=== PATIENT | female | born 1970 | race Caucasian/White ===

== ENCOUNTER → 2018-03-24 10:52 | Outpatient (CLI) | payer BC, SELFPAY ==
[2018-03-24 11:00] LABS: Bacteria Urine None Seen; RBC Urine None Seen (0-5/HPF); WBC Urine None Seen (0-5/HPF)
[2018-03-24 12:18] LABS: Appearance Urine UA CLEAR; Bilirubin Urine UA NEGATIVE (NEGATIVE); Color Urine UA YELLOW; Glucose Urine UA NEGATIVE (Normal); Ketones Urine UA NEGATIVE (NEGATIVE); Leukocyte Esterase Urine UA NEGATIVE (NEGATIVE); Nitrite Urine UA Negative (Negative); Occult Blood Urine UA NEGATIVE (Negative); Protein Urine UA NEGATIVE (Negative); Urobilinogen Urine UA 0.2 E.U./dL (0.2); pH Urine UA 6.5 (4.5-8.0)
[2018-03-24 12:24] LABS: Amorphous Sediment Urine 1+; Culture Indicated Urine Cult Not Indicated
== END ==
PROVIDERS: Family Provider Family Medicine; PCP Family Medicine; Visit Provider Family Medicine
DX: R35.0 Frequency of micturition (principal)
CPT/HCPCS: 81001

== ENCOUNTER → 2018-10-17 12:02 | Outpatient (CLI) | payer BC, SELFPAY | PROVIDERS: Family Provider Family Medicine; PCP Family Medicine; Visit Provider Physician Assistant | DX: J02.9 Acute pharyngitis, unspecified (principal) | CPT/HCPCS: 87070 ==

== ENCOUNTER → 2019-03-21 13:47 | Outpatient (CLI) | payer BC, SELFPAY ==
--- NOTE | 2019-03-21 | DI.MG.S_ITS ---
BILATERAL DIGITAL SCREENING MAMMOGRAM 3D/2D WITH CAD: 03/21/2019 CLINICAL: Routine screening. Comparison is made to exam dated: 08/22/2012 [facility]. The tissue of both breasts is heterogeneously dense. This may lower the sensitivity of mammography. Current study was also evaluated with a Computer Aided Detection (CAD) system. There are benign calcifications in the right breast. No significant masses, calcifications, or other findings are seen in either breast. There has been no significant interval change. IMPRESSION: There is no mammographic evidence of malignancy. A 1 year screening mammogram is recommended. This exam was interpreted at Station ID: [id number]. NOTE: For mammograms, a report in lay terms will be sent to the patient. Approximately 15% of breast malignancies will not be visualized mammographically. In the management of a palpable breast mass, a negative mammogram must not discourage biopsy of a clinically suspicious lesion. Electronically Signed By: Cole tong/cesilia:03/21/2019 14:21:32 letter sent: Normal Exam ACR BI-RADS Category 2: Benign Finding(s) 3342F
== END ==
PROVIDERS: PCP Internal Medicine; Visit Provider Internal Medicine
DX: Z12.31 Encounter for screening mammogram for malignant neoplasm of breast (principal)
CPT/HCPCS: 77063; 77067

== ENCOUNTER → 2019-04-24 15:19 | Outpatient (CLI) | payer BC, SELFPAY ==
--- NOTE | 2019-04-24 | DI.RAD.S_ITS ---
PROCEDURE: XR HAND LT MIN 3V INDICATIONS: LEFT HAND PAIN SWELLING TECHNIQUE: 3 views of the hand(s) acquired. COMPARISON: None. FINDINGS: Bones: No fractures or dislocations. Carpal bones are normally aligned. No suspicious bony lesions. There is mild irregularity at the PIP joint of the little finger although unusual appearance for erosion. This appears chronic. Chronic fracture fragment versus loose body seen projecting adjacent to the ulnar styloid Soft tissues: Radiocarpal subtle chondrocalcinosis. IMPRESSION: Possible loose body versus chronic fracture fragment projects adjacent to the ulnar styloid. Chondrocalcinosis projecting in the radiocarpal compartment. Dictated by: Jef Cole M.D. on 04/24/2019 at 16:09 Approved by: Jef Cole M.D. on 04/24/2019 at 16:18
== END ==
PROVIDERS: PCP Internal Medicine; Visit Provider Internal Medicine
DX: M79.642 Pain in left hand (principal); M11.242 Other chondrocalcinosis, left hand
CPT/HCPCS: 73130

== ENCOUNTER → 2019-05-15 14:46 | Outpatient (CLI) | payer BC, SELFPAY ==
--- NOTE | 2019-05-15 | DI.RAD.S_ITS ---
PROCEDURE: XR FOOT RT MIN 3V INDICATIONS: Right Foot Pain TECHNIQUE: 3 views of the foot were acquired. COMPARISON: None. FINDINGS: Bones: No dislocations. No suspicious bony lesions. There is a subtle but definite transverse fracture that appears interarticular involving the base of the fifth metatarsal bone. Soft tissues: No tibiotalar joint effusion. Achilles tendon appears normal. IMPRESSION:. Nondisplaced fifth metatarsal transverse fracture at the base extending into the articular surface. This fracture is subtle but definite. Dictated by: Rod Medina M.D. on 05/15/2019 at 16:20 Approved by: Rod Medina M.D. on 05/15/2019 at 16:21
== END ==
PROVIDERS: PCP Internal Medicine; Visit Provider Internal Medicine
DX: M79.671 Pain in right foot (principal); S92.354A Nondisplaced fracture of fifth metatarsal bone, right foot, initial encounter for closed fracture
CPT/HCPCS: 73630

== ENCOUNTER → 2020-12-05 12:21 | Outpatient (CLI) | payer BC, SELFPAY ==
--- NOTE | 2020-12-05 12:23 | DI.RAD.S_ITS ---
PROCEDURE: XR DEXA AXIAL SKELETON INDICATIONS: Routine screening COMPARISON: None. FINDINGS: This blank DEXA report has been sent in error by the PACS system. The correct and complete report will be forthcoming in 1-2 days. Thank you for your patience and understanding. Dictated by: Ursula Campos MD, PhD on 12/05/2020 at 17:20 Approved by: Ursula Campos MD, PhD on 12/05/2020 at 17:20
--- NOTE | 2020-12-05 12:23 | DI.MG.S_ITS ---
BILATERAL DIGITAL SCREENING MAMMOGRAM 3D/2D WITH CAD: 12/05/2020 CLINICAL: Routine screening. Comparison is made to exams dated: 03/21/2019 mammogram, 08/30/2012 mammogram, and 08/22/2012 mammogram - [facility]. The tissue of both breasts is heterogeneously dense. This may lower the sensitivity of mammography. Current study was also evaluated with a Computer Aided Detection (CAD) system. There are benign calcifications in both breasts. No significant masses, calcifications, or other findings are seen in either breast. There has been no significant interval change. IMPRESSION: BENIGN There is no mammographic evidence of malignancy. A 1 year screening mammogram is recommended. This exam was interpreted at Station ID: [id number]. NOTE: For mammograms, a report in lay terms will be sent to the patient. Approximately 15% of breast malignancies will not be visualized mammographically. In the management of a palpable breast mass, a negative mammogram must not discourage biopsy of a clinically suspicious lesion. Electronically Signed By: Russ arthur/cesilia:12/05/2020 14:33:28 letter sent: Normal Exam ACR BI-RADS Category 2: Benign Finding(s) 3342F
== END ==
PROVIDERS: PCP Internal Medicine; Referring Provider Internal Medicine; Visit Provider Internal Medicine
DX: Z12.31 Encounter for screening mammogram for malignant neoplasm of breast (principal); M85.852 Other specified disorders of bone density and structure, left thigh; Z78.0 Asymptomatic menopausal state; Z87.891 Personal history of nicotine dependence; Z82.62 Family history of osteoporosis
CPT/HCPCS: 77063; 77067; 77080

== ENCOUNTER → 2021-01-08 09:25 | Outpatient (CLI) | payer BC, SELFPAY ==
[2021-01-08 11:20] LABS: COVID19 -Nasal RAPID Negative (Negative)
== END ==
PROVIDERS: PCP Internal Medicine; Visit Provider Physician Assistant
DX: Z20.822 Contact with and (suspected) exposure to COVID-19 (principal); Z01.812 Encounter for preprocedural laboratory examination
CPT/HCPCS: 87635

== ENCOUNTER 2021-01-10 13:24 | Day surgery (SDC) | payer BC, SELFPAY ==
--- NOTE | 2021-01-10 | PATH_ITS ---
[facility] Accession Number: [id number] . 01 Material submitted: . rectum - RECTUM 2MM . 02 Diagnosis: Rectum, 2 mm, Biopsy: Hyperplastic polyp with features of mucosal prolapse. Negative for dysplasia and malignancy. MRV 01/15/2021 1328 Local . 02 Electronically signed: . Kiana Yanez MD, Pathologist NPI- [id number] . 01 Gross description: . RECTUM 2MM: Received in formalin is 1 fragment(s) of elias, soft tissue measuring 0.3 x 0.2 x 0.2 cm submitted entirely in 1 cassette(s) /JOHN 01/14/2021 0046 Local . 02 Pathologist provided ICD-10: K62.1 . 02 CPT . 858639 Performed at: 01 [facility] [address] [id number] MD Russ Freeman MD Phone: [phone] Performed at: [address] [facility] [address] [place], [place] [id number] MD Kiana Yanez MD Phone: [phone]
--- NOTE | 2021-01-10 12:07 | PM.OP.ENDO ---
Operative Date/Time/Diagnoses Date of procedure: 01/10/21 Procedure & Clinicians Indications: ENDOSCOPIST: Jenni Craig MD Sedation RN: Judit Crum RN Sedation start time: 2:42 p.m. Sedation end time: 3:02 p.m. PROCEDURE: Colonoscopy with biopsy INDICATIONS: 1. Screening for colon cancer MEDICATION: Levsin 0.125 mg sublingual, incremental doses of Versed and fentanyl until appropriate level sedation achieved. ASA CLASS: 2 CECAL WITHDRAWAL TIME: 6 minutes COMPLICATIONS: None. EXTENT OF PROCEDURE: Cecum. QUALITY OF PREP: Good with portions of liquid stool. PROCEDURE: Prior to insertion of the colonoscope, a digital rectal examination was accomplished with circumferential palpation of the distal rectal mucosa without significant findings being noted. The high-definition pediatric colonoscope was passed into the rectum in the usual fashion and advanced over to the cecum without difficulty. The ileocecal valve, appendiceal stoma, and medial wall all could be inspected and no abnormalities were seen. ASCENDING COLON: As the colonoscope was withdrawn, care was taken to expose and inspect the haustral folds and no abnormalities were seen. HEPATIC FLEXURE: Normal, no polyps, diverticula or other abnormalities. TRANSVERSE COLON: Normal, no polyps, diverticula or other abnormalities. DESCENDING COLON: Normal, no polyps, diverticula or other abnormalities. SIGMOID COLON: 2 mm polyp removed with cold biopsy forceps. Otherwise, normal, no diverticula or other abnormalities. RECTUM: Normal. J maneuver was produced. There was no significant perianal disease. The J maneuver was broken. The remainder of the rectum was inspected and there was no external hemorrhoid disease. The scope was withdrawn. IMPRESSION: 1. Sigmoid polyp x1, 2 mm, removed with cold biopsy forceps. PLAN: 1. Follow-up in clinic status post pathology results. The possibility of a missed lesion including a malignancy has been discussed with the patient previously. Potential alarm symptoms have been discussed and should be reported immediately. Procedure Notes SCOAP/Timeout: 2:40 p.m.
[2021-01-10] MEDS: LACTATED RINGERS 1,000 ML 200 ML IV (13:40)
[2021-01-10] MEDS: HYOSCYAMINE 0.125 MG TABLET PO (13:40)
[2021-01-10 13:46] VITALS: BP 139/85; PULSE 85; RESP 16; TEMP 37.2; O2SAT 100; BMI 21.9
--- NOTE | 2021-01-10 14:39 | PM.PREOP ---
Pre-operative Note COVID-19 COVID-19 status: Negative Result date/Date tested (Pos, Neg/Pending): 01/08/21 Interval Note History & Physical reviewed/Exam performed by Physician: Yes Changes to H&P: No ASA Class (for procedural sedation): II
[2021-01-10] MEDS: fentaNYL 250 MCG/5 ML INJ IV (14:54)
[2021-01-10] MEDS: MIDAZOLAM 5 MG/5 ML VIAL IV (14:54)
[2021-01-10 15:06] VITALS: BP 104/57; PULSE 76; RESP 13; TEMP 36.6; O2SAT 96
[2021-01-10 15:11] VITALS: BP 107/68; PULSE 78; RESP 12; O2SAT 96
[2021-01-10 15:16] VITALS: BP 105/57; PULSE 75; RESP 12; O2SAT 96
[2021-01-10 15:23] VITALS: BP 93/57; PULSE 68; RESP 13; TEMP 36.9; O2SAT 97
[2021-01-10 15:45] VITALS: BP 118/68; PULSE 60; RESP 16; TEMP 36.1; O2SAT 100
== END 2021-01-10 15:50 | disposition home or self-care (01) ==
PROVIDERS: PCP Internal Medicine; Referring Provider Student in an Organized Health Care Education/Training Program; Visit Provider Student in an Organized Health Care Education/Training Program
PROC: 0DJD8ZZ Inspection of Lower Intestinal Tract, Via Natural or Artificial Opening Endoscopic (ICD-10-PCS; CPT 45378; principal; 2021-01-10 14:30)
DX: Z12.11 Encounter for screening for malignant neoplasm of colon (principal); K62.1 Rectal polyp
CPT/HCPCS: 45380; J2250; J3010

== ENCOUNTER → 2021-12-01 16:45 | Outpatient (CLI) | payer BC, SELFPAY ==
--- NOTE | 2021-12-01 | DI.MG.S_ITS ---
BILATERAL DIGITAL SCREENING MAMMOGRAM 3D/2D WITH CAD: 12/01/2021 CLINICAL: Routine screening. Comparison is made to exams dated: 03/21/2019 mammogram and 12/05/2020 mammogram - [facility]. The tissue of both breasts is heterogeneously dense. This may lower the sensitivity of mammography. Current study was also evaluated with a Computer Aided Detection (CAD) system. There are benign calcifications in both breasts. No significant masses, calcifications, or other findings are seen in either breast. There has been no significant interval change. IMPRESSION: BENIGN There is no mammographic evidence of malignancy. A 1 year screening mammogram is recommended. This exam was interpreted at Station ID: [id number]. NOTE: For mammograms, a report in lay terms will be sent to the patient. Approximately 15% of breast malignancies will not be visualized mammographically. In the management of a palpable breast mass, a negative mammogram must not discourage biopsy of a clinically suspicious lesion. Electronically Signed By: Shadi engle/cesilia:12/02/2021 08:18:26 letter sent: Normal Exam ACR BI-RADS Category 2: Benign Finding(s) 3342F
== END ==
PROVIDERS: PCP Internal Medicine; Referring Provider Internal Medicine; Visit Provider Internal Medicine
DX: Z12.31 Encounter for screening mammogram for malignant neoplasm of breast (principal)
CPT/HCPCS: 77063; 77067

== ENCOUNTER → 2022-03-17 15:56 | Outpatient (CLI) | payer BC, SELFPAY ==
--- NOTE | 2022-03-17 | DI.RAD.S_ITS ---
PROCEDURE: XR FOOT LT MIN 3V INDICATIONS: INJURY, TWISTED FOOT/ANKLE TECHNIQUE: 3 views of the foot were acquired. COMPARISON: [facility], CR, XR FOOT RT MIN 3V, 05/15/2019, 15:05. FINDINGS: Bones: No fractures or dislocations. No suspicious bony lesions. Tiny plantar calcaneal enthesophyte is seen. 1st MTP joint osteoarthritic changes are noted. Soft tissues: No tibiotalar joint effusion. Achilles tendon appears normal. IMPRESSION: No left foot fracture or dislocation. No gross soft tissue abnormality. Tiny plantar calcaneal enthesophyte. 1st MTP joint osteoarthritis. Dictated by: Kirby Santana M.D. on 03/17/2022 at 16:44 Approved by: Kirby Santana M.D. on 03/17/2022 at 16:45
--- NOTE | 2022-03-17 15:59 | DI.RAD.S_ITS ---
PROCEDURE: XR ANKLE LT MIN 3V INDICATIONS: LEFT FOOT PAIN TECHNIQUE: 3 views of the ankle were acquired. COMPARISON: None. FINDINGS: Bones: No fractures or dislocations. Ankle mortise is normally aligned. No suspicious bony lesions. Tiny plantar calcaneal enthesophyte is seen. Soft tissues: No tibiotalar joint effusion. Achilles tendon appears normal. IMPRESSION: No ankle fracture or dislocation. Ankle mortise is congruent. No gross soft tissue abnormality. Dictated by: Kirby Santana M.D. on 03/17/2022 at 16:42 Approved by: Kirby Santana M.D. on 03/17/2022 at 16:44
== END ==
PROVIDERS: PCP Internal Medicine; Referring Provider Internal Medicine; Visit Provider Internal Medicine
DX: M25.572 Pain in left ankle and joints of left foot (principal); M77.32 Calcaneal spur, left foot; M19.072 Primary osteoarthritis, left ankle and foot
CPT/HCPCS: 73610; 73630

== ENCOUNTER 2022-06-26 08:44 | Emergency (ER) | payer BC, SELFPAY ==
[2022-06-26] VITALS (15 sets, daily range): BP systolic 128–202; BP diastolic 68–110; PULSE 56–85; RESP 16–25; TEMP 36.2; O2SAT 96–100; BMI 21.2
--- NOTE | 2022-06-26 09:00 | DI.RAD.S_ITS ---
PROCEDURE: XR CHEST 1V INDICATIONS: Chest pain TECHNIQUE: One view of the chest was acquired. COMPARISON: None. FINDINGS: Surgical changes and devices: None. Lungs and pleura: Trace right base opacities. No pleural effusion. No dense consolidation. Mediastinum: Mediastinal contours appear normal. Heart size is normal. Bones and chest wall: No suspicious bony lesions. Overlying soft tissues appear unremarkable. IMPRESSION: Trace opacities in right base could represent atelectasis or early airspace disease. No pleural effusions or dense consolidation. Dictated by: Heri Fowler M.D. on 06/26/2022 at 9:17 Approved by: Heri Fowler M.D. on 06/26/2022 at 9:18
--- NOTE | 2022-06-26 09:06 | ED_ITS ---
HPI - General Adult General Chief complaint: Chest Pain Stated complaint: Chest pain, SOB Time Seen by Provider: 06/26/22 08:58 Source: patient Mode of arrival: Ambulatory Limitations: no limitations History of Present Illness HPI narrative: Patient is a 51-year-old female. Otherwise healthy although she states that her primary doctor has her checking her blood pressure at home since the beginning of the year. She does take her blood pressure at home on a regular basis and her states that it is normally 140s to 150 systolic. States yesterday afternoon she started to have midsternal chest discomfort. 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 It is somewhat better with pressing it. It does radiate to her back. She states it just ?aches? it did get somewhat better last evening but she did go to sleep last night with a discomfort. She woke up this morning with the discomfort and then approximately 1 hour ago her symptoms worsened. She is not tried anything for the symptoms prior to arrival. She is having some shortness of breath. No nausea. No abdominal pain. No hea dache. Related Data Home Medications Medication Instructions Recorded Confirmed [hair/skin/nails] ##0 02/11/17 12/24/18 cholecalciferol (vitamin D3) 50 1 tab PO QDAY ##0 02/11/17 01/10/21 mcg (2,000 unit) tablet (Vitamin D3) glucosamine sulfate 750 mg tablet 750 mg PO DAILY ##0 02/11/17 01/10/21 (Stacey) turmeric root extract 500 mg 1,000 mg PO DAILY 12/24/18 01/10/21 capsule ketoconazole 2 % shampoo See Rx Instructions .Route .COMPLEX 01/08/21 01/10/21 Allergies Allergy/AdvReac Type Severity Reaction Status Date / Time No Known Drug Allergies Allergy Verified 01/10/21 12:09 Review of Systems Review of Systems ROS Unobtainable: All systems reviewed & are unremarkable except as noted in HPI and below Patient History Medical History Eczema Menopause Osteopenia Surgical History (Updated 02/22/18 @ 06:35 by Conversion Provider) Status post hysterectomy Social History household members: spouse Smoking Status: Former smoker alcohol intake: current Smoking Status: Former smoker alcohol intake frequency: a few times a week Substance Use Type: does not use Exam Initial Vital Signs Initial Vital Signs: Vital Signs Pulse Rate 70 06/26/22 08:58 Respiratory Rate 20 06/26/22 08:58 Pulse Oximetry 100 06/26/22 08:58 Const General: cooperative and comfortable HENMT Head: normal to inspection and normocephalic Eyes General: Yes appearance normal, both eyes and all related structures Resp Effort & Inspection: normal respiratory effort Auscultation: clear to auscultation bilaterally Cardio Rate: regular rate Rhythm: regular rhythm Pulses: radial pulses present GI Inspection: normal to inspection Palpation: soft and No tender Back/Spine/Pelvis Other: No tenderness to palpation over midline or over the left paraspinal area where she is describing the discomfort Skin General: no rashes or lesions noted Neuro General: patient alert, patient awake and moves all extremities Extrem General: normal to inspection and capillary refill normal Psych Appearance: grossly normal and well kempt Scores GCS Jorgito coma scale eye opening: Spontaneous [place] coma scale verbal response: Orientated [place] coma scale motor response: Obey commands Jorgito coma scale total score: 15 HEART Score Heart Score history: Moderately Suspicious Heart Score EKG: Normal Heart Score Age: 45-64 years old Heart Score risk factors: No known risk factors Heart Score troponin: < or = to normal limit Heart Score Total: 2 PERC Score Age greater than or equal to 50 years: Yes Heart rate greater than or equal to 100 bpm: No Room Air O2 Sat less than 95%: No Unilateral leg swelling: No Recent trauma or surgery: No Hemoptysis: No Prior PE or DVT: No Hormone Use: No Total PERC Score: 1 Course Orders Ordered: ED Orders 06/26/22 12:02 Troponin I Stat 06/26/22 13:18 EKG-12 Lead Stat Discontinued Medications Aspirin (Aspirin 81 Mg Chew Tab) 324 mg PO NOW ONE Stop: 06/26/22 09:00 Last Admin: 06/26/22 09:45 Dose: 324 mg Documented By: SAMINA Al Hydrox/Mg Hydrox/Simethicone 20 ml/ Lidocaine HCl 15 ml 0 ml PO NOW ONE Stop: 06/26/22 10:18 Last Admin: 06/26/22 10:58 Dose: 15 ml Documented By: SAMINA Nitroglycerin (Nitroglycerin 0.4 Mg Sl Tab) 0.4 mg SL [id number] PRN PRN Reason: Chest Pain Last Admin: 06/26/22 10:57 Dose: 0.4 mg Documented By: Admin: 06/26/22 09:45 Dose: 0.4 mg Documented By: SAMINA Pantoprazole Sodium (Pantoprazole 40 Mg Vial) 40 mg IV NOW ONE Stop: 06/26/22 10:18 Last Admin: 06/26/22 10:58 Dose: 40 mg Documented By: SAMINA Vital Signs Vital signs: Vital Signs - 8 hr 06/26/22 11:30 06/26/22 11:30 06/26/22 12:00 Pulse Rate 56 L Respiratory Rate 19 Blood Pressure 169/77 H 145/68 H Pulse Oximetry 98 Oxygen Delivery Method Room Air 06/26/22 12:00 06/26/22 12:30 06/26/22 12:30 Pulse Rate 57 L 67 Respiratory Rate 17 Blood Pressure 128/82 Pulse Oximetry 97 98 Oxygen Delivery Method 06/26/22 13:00 06/26/22 13:00 Pulse Rate 63 Respiratory Rate 19 Blood Pressure 164/75 H Pulse Oximetry 97 Oxygen Delivery Method Medical Decision Making Lab Data Lab results reviewed: Yes I reviewed the patient's lab results. Result diagrams: 06/26/22 09:05 06/26/22 09:05 Labs: Lab Results 06/26/22 06/26/22 06/26/22 Range/Units 09:05 09:05 09:05 WBC 5.4 (4.5-11.0) X10^3/uL RBC 3.94 L (4.0-5.2) X10^6/uL Hgb 12.7 (12.0-16.0) g/dL Hct 37.5 (36-46) % MCV 95.2 (80-100) fL MCH 32.3 (26-34) PG MCHC 34.0 (30-36) % RDW 13.6 (11.6-14.8) % Plt Count 256 (150-400) X10^3/uL Neut % (Auto) 59.7 (50-75) % Lymph % (Auto) 26.4 (25-40) % [place] % (Auto) 11.0 (3-14) % Eos % (Auto) 2.2 (2-4) % Baso % (Auto) 0.7 (0-2) % Neut # (Auto) 3200 (2170-4448) /uL Lymph # (Auto) 1400 (7932-4127) /uL [place] # (Auto) 600 (0-900) /uL Eos # (Auto) 100 (0-450) /uL Baso # (Auto) 0 (0-100) /uL D-Dimer 424 (<500) ng/ml Sodium 136 L (137-145) mmol/L Potassium 3.9 (3.4-5.1) mmol/L Chloride 106 (98-107) mmol/L Carbon Dioxide 24 (22-32) mmol/L BUN 10 (7-17) mg/dL Creatinine 0.47 L (0.52-1.04) mg/dL Estimated GFR > 60 (>60) mL/min BUN/Creatinine Ratio 21.3 (6-22) Glucose 100 (70-100) mg/dL Calcium 9.1 (8.4-10.2) mg/dL Magnesium 1.5 L (1.6-2.3) mg/dL Total Bilirubin 0.6 (0.2-1.3) mg/dL AST 27 (14-36) IU/L ALT 19 (<35) IU/L Alkaline Phosphatase 69 (38-126) U/L Total Creatine Kinase 82 (30-135) U/L CK-MB (CK-2) TNP CK-MB (CK-2) Rel Index TNP Troponin I < 0.012 (0.01-0.034) ng/mL Total Protein 7.7 (6.3-8.2) g/dL Albumin 4.5 (3.5-5.0) g/dL Globulin 3.2 (1.7-4.1) g/dL Albumin/Globulin Ratio 1.4 (1.0-2.8) Lipase 72 (23-300) U/L 06/26/22 Range/Units 12:02 WBC (4.5-11.0) X10^3/uL RBC (4.0-5.2) X10^6/uL Hgb (12.0-16.0) g/dL Hct (36-46) % MCV (80-100) fL MCH (26-34) PG MCHC (30-36) % RDW (11.6-14.8) % Plt Count (150-400) X10^3/uL Neut % (Auto) (50-75) % Lymph % (Auto) (25-40) % [place] % (Auto) (3-14) % Eos % (Auto) (2-4) % Baso % (Auto) (0-2) % Neut # (Auto) (0998-1962) /uL Lymph # (Auto) (6240-0562) /uL [place] # (Auto) (0-900) /uL Eos # (Auto) (0-450) /uL Baso # (Auto) (0-100) /uL D-Dimer (<500) ng/ml Sodium (137-145) mmol/L Potassium (3.4-5.1) mmol/L Chloride (98-107) mmol/L Carbon Dioxide (22-32) mmol/L BUN (7-17) mg/dL Creatinine (0.52-1.04) mg/dL Estimated GFR (>60) mL/min BUN/Creatinine Ratio (6-22) Glucose (70-100) mg/dL Calcium (8.4-10.2) mg/dL Magnesium (1.6-2.3) mg/dL Total Bilirubin (0.2-1.3) mg/dL AST (14-36) IU/L ALT (<35) IU/L Alkaline Phosphatase (38-126) U/L Total Creatine Kinase (30-135) U/L CK-MB (CK-2) CK-MB (CK-2) Rel Index Troponin I < 0.012 (0.01-0.034) ng/mL Total Protein (6.3-8.2) g/dL Albumin (3.5-5.0) g/dL Globulin (1.7-4.1) g/dL Albumin/Globulin Ratio (1.0-2.8) Lipase (23-300) U/L Imaging Data Chest x-ray: Radiologist's Impression: [address] [address] XRay Report Signed Patient: Alaina Vargas MR#: [id number] : 1970 Acct:[id number] Age/Sex: 51 / F Date of Service: 06/26/22 Loc: ED Accession Number: [id number] ?? Procedure: XR chest 1V Ordering Provider: Scott Greene D.O. PROCEDURE:? XR CHEST 1V ? INDICATIONS:? Chest pain ? TECHNIQUE:? One view of the chest was acquired.? ? COMPARISON:? None. ? FINDINGS:? ? Surgical changes and devices:? None.? ? Lungs and pleura:? Trace right base opacities.? No pleural effusion.? No dense consolidation. ? Mediastinum:? Mediastinal contours appear normal.? Heart size is normal.? ? Bones and chest wall:? No suspicious bony lesions.? Overlying soft tissues appear unremarkable.? ? IMPRESSION:? Trace opacities in right base could represent atelectasis or early airspace disease.? No pleural effusions or dense consolidation. ? ? Dictated by: Heri Fowler M.D. on 06/26/2022 at 9:17 ? ? Approved by: Heri Fowler M.D. on 06/26/2022 at 9:18 ECG Data Attestation: I personally reviewed and interpreted this ECG as follows: Prior ECG tracings: available for review Interpretation: Sinus rhythm Ventricular rate of 75 Normal axis Normal QRS Normal QTC No ST T wave changes\ Repeat EKG Sinus rhythm Ventricular rate is 65 Normal axis No changes from prior MDM Narrative Medical decision making narrative: Patient has low risk heart score. Troponins negative x2 and the 2nd was greater than 6 hours of the onset of symptoms. Chest x-ray is unremarkable. EKG is unremarkable. She actually states she feels better after the GI cocktail and Protonix. I suspect that this does have a GI component to it however informed 3rd that she does need follow-up with her primary doctor to discuss further risk stratification. Will start on a H2 jarett. She was given return precautions. She expressed understanding and agreement. Discharge Plan Departure Patient Disposition: Home Clinical Impression: Atypical chest pain Instructions: DI for Atypical Chest Pain Activity Restrictions/Additional Instructions: Recommend that you continue to take your blood pressure at home. Also recommend you start on a medicine called famotidine/Pepcid. You can purchase this [id number]. Contact your primary doctor's office to discuss further testing such as stress test. Return to the emergency department for any new or worsening symptoms. Prescriptions: No Action turmeric root extract 500 mg capsule 1,000 mg PO DAILY glucosamine sulfate [Stacey] 750 MG tablet 750 mg PO DAILY Qty: 0 cholecalciferol (vitamin D3) [Vitamin D3] 2,000 UNIT tablet 1 tab PO QDAY Qty: 0 [hair/skin/nails] Qty: 0 ketoconazole 2 % shampoo See Rx Instructions .ROUTE .COMPLEX Rx Instructions: Apply to scalp for 1 minute, rinse, and reapply for 3 minutes. Use two to three times weekly. Referrals: Bruna Cantu ARNP [Primary Care Provider] - Visit Report Forms: Patient Portal/API
[2022-06-26 09:12] LABS: Add Manual Diff / Slide Review NO; Basophils Absolute Auto 0 /uL (0-100); Basophils Percent Auto 0.7 % (0-2); Eosinophils Absolute Auto 100 /uL (0-450); Eosinophils Percent Auto 2.2 % (2-4); Hematocrit 37.5 % (36-46); Hemoglobin 12.7 g/dL (12.0-16.0); Lymphocytes Absolute Auto 1400 /uL (1100-4500); Lymphocytes Percent Auto 26.4 % (25-40); Mean Corpuscular Hemoglobin 32.3 PG (26-34); Mean Corpuscular Volume 95.2 fL (80-100); Monocytes Absolute Auto 600 /uL (0-900); Neutrophils Absolute Auto 3200 /uL (1500-7000); Neutrophils Percent Auto 59.7 % (50-75); Platelet Count 256 X10^3/uL (150-400); Red Blood Cell Count 3.94 X10^6/uL (4.0-5.2); Red Cell Distribution Width 13.6 % (11.6-14.8); White Blood Cell Count 5.4 X10^3/uL (4.5-11.0)
[2022-06-26 09:23] LABS: Alanine Aminotransferase 19 IU/L (<35); Albumin 4.5 g/dL (3.5-5.0); Albumin Globulin Ratio 1.4 (1.0-2.8); Alkaline Phosphatase 69 U/L (38-126); Aspartate Aminotransferase 27 IU/L (14-36); BUN Creatinine Ratio 21.3 (6-22); Bilirubin Total 0.6 mg/dL (0.2-1.3); Blood Urea Nitrogen 10 mg/dL (7-17); Calcium 9.1 mg/dL (8.4-10.2); Carbon Dioxide 24 mmol/L (22-32); Chloride 106 mmol/L (98-107); Creatine Kinase 82 U/L (30-135); Estimated Glomerular Filt Rate > 60 mL/min (>60); Globulin 3.2 g/dL (1.7-4.1); Glucose 100 mg/dL (70-100); HEMOLYSIS < 15 (0-50); Lipase 72 U/L (23-300); Magnesium 1.5 mg/dL (1.6-2.3); Potassium 3.9 mmol/L (3.4-5.1); Sodium 136 mmol/L (137-145); Total Protein 7.7 g/dL (6.3-8.2)
[2022-06-26 09:34] LABS: Troponin I < 0.012 ng/mL (0.01-0.034)
[2022-06-26] MEDS: NITROGLYCERIN 0.4 MG SL TAB SL ×2 (09:45→10:57)
[2022-06-26] MEDS: ASPIRIN 81 MG CHEW TAB 324 MG PO (09:45)
[2022-06-26 10:02] LABS: D Dimer 424 ng/ml (<500)
[2022-06-26] MEDS: PANTOPRAZOLE 40 MG VIAL IV (10:58)
[2022-06-26] MEDS: MAG HYDROX/ALUMINUM/SIMETH SUS 20 ML, LIDOCAINE VISCOUS 2% 15 ML PO (10:58)
[2022-06-26 12:34] LABS: Troponin I < 0.012 ng/mL (0.01-0.034)
--- NOTE | 2022-06-26 13:09 | PC.NURSE ---
obtained patient care. Dr Greene at bedside.
== END 2022-06-26 13:26 | disposition home or self-care (01) ==
PROVIDERS: Emergency Provider Emergency Medicine; PCP Internal Medicine
DX: R07.89 Other chest pain (principal)
CPT/HCPCS: 36415; 71045; 80053; 82550; 83690; 83735; 84484; 85025; 85379; 93005; 96374; 99284; C9113

== ENCOUNTER → 2022-07-01 09:57 | Outpatient (ROUT) | payer BC, SELFPAY ==
[2022-07-01 10:45] LABS: Influenza A - CEPHEID Flu A NEGATIVE (NEGATIVE); Influenza B - CEPHEID Flu B NEGATIVE (NEGATIVE)
[2022-07-01 11:37] LABS: COVID-19 CEPHEID PCR (VTM/NP) Negative (Negative)
== END ==
PROVIDERS: PCP Internal Medicine; Visit Provider Internal Medicine
DX: Z20.822 Contact with and (suspected) exposure to COVID-19 (principal); J02.9 Acute pharyngitis, unspecified
CPT/HCPCS: 0240U

== ENCOUNTER → 2022-07-23 11:22 | Outpatient (CLI) | payer BC, SELFPAY ==
--- NOTE | 2022-07-23 | DI.CT.S_ITS ---
PROCEDURE: CT CHEST ABD PEL W CON INDICATIONS: Abnormal weight loss;Unspecified abdominal pain TECHNIQUE: After the administration of oral and intravenous contrast, axial sections acquired from the supraclavicular neck to the pubic symphysis. Coronal and sagittal reformats were performed. For radiation dose reduction, the following was used: automated exposure control, adjustment of mA and/or kV according to patient size. COMPARISON:None. FINDINGS: Image quality: Excellent. CHEST: Lower Neck: No enlarged lymph nodes. Thyroid: Multiple subcentimeter foci of low attenuation are present bilaterally. Axillae: No enlarged lymph nodes. Chest Wall: Unremarkable. Lungs and Airways: No consolidation or suspicious nodules. Pleura: No pneumothorax or pleural effusions. Heart: Heart size is normal. No pericardial effusion. Thoracic Vessels: The aorta and pulmonary arteries demonstrate normal size. Mediastinum and Zari: No enlarged lymph nodes. Esophagus: No wall thickening. No hiatal hernia. ABDOMEN: Liver: Multiple punctate areas of low attenuation are present within the liver. Gallbladder: Unremarkable. Biliary ducts: Unremarkable. Pancreas: Unremarkable. Spleen: Unremarkable. Adrenal Glands: Unremarkable. Kidneys and Ureters: Unremarkable. Stomach and Bowel: Stomach, small bowel loops, and colon are nonobstructive. Colonic stool is present. Peritoneum: No abnormal intraperitoneal fluid. No free air. Ventral Wall: Fat containing ventral hernia. Abdominal Nodes: No retroperitoneal or mesenteric adenopathy by size criteria. Vessels: Aorta and inferior vena cava are normal in size. PELVIS: Pelvic Organs: Unremarkable. Bladder: Unremarkable. Pelvic Nodes: No enlarged lymph nodes. Miscellaneous: No inguinal hernias are seen. Bones: Unremarkable. IMPRESSION: 1. Multifocal punctate areas of low attenuation are noted within the liver. They are too small to definitively characterize and no priors are available for comparison. These could represent small cysts or hemangiomas. However, other etiologies cannot be excluded. Dictated by: Melissa Raphael M.D. on 07/23/2022 at 13:32 Approved by: Mleissa Raphael M.D. on 07/23/2022 at 13:42
== END ==
PROVIDERS: PCP Internal Medicine; Referring Provider Internal Medicine; Visit Provider Internal Medicine
DX: R63.4 Abnormal weight loss (principal); R10.9 Unspecified abdominal pain; K43.9 Ventral hernia without obstruction or gangrene
CPT/HCPCS: 71260; 74177; Q9967

== ENCOUNTER → 2023-02-22 18:10 | Outpatient (ROUT) | payer BC, SELFPAY ==
[2023-02-22 18:51] LABS: Influenza A - CEPHEID Flu A NEGATIVE (NEGATIVE); Influenza B - CEPHEID Flu B NEGATIVE (NEGATIVE); Respiratory Syncytial Virus Negative (Negative)
[2023-02-22 19:59] LABS: COVID-19 CEPHEID 4-PLEX PCR Negative (Negative)
== END ==
PROVIDERS: PCP Internal Medicine; Visit Provider Internal Medicine
DX: R05.9 Cough, unspecified (principal); J02.9 Acute pharyngitis, unspecified
CPT/HCPCS: 0241U

== ENCOUNTER → 2023-10-07 16:06 | Outpatient (CLI) | payer BC, SELFPAY ==
--- NOTE | 2023-10-07 | DI.MG.S_ITS ---
BILATERAL DIGITAL SCREENING MAMMOGRAM 3D/2D WITH CAD: 10/07/2023 CLINICAL: Routine screening. Comparison is made to exams dated: 12/01/2021 mammogram, 12/05/2020 mammogram, and 03/21/2019 mammogram - [facility]. Both breasts are heterogeneously dense, which may obscure small masses (category c / 51-75% glandular tissue). Current study was also evaluated with a Computer Aided Detection (CAD) system. No significant masses, calcifications, or other findings are seen in either breast. IMPRESSION: NEGATIVE There is no mammographic evidence of malignancy. A 1 year screening mammogram is recommended. Based on the Tyrer Cuzick model (a risk assessment model) the patient's lifetime risk is 11.0% and her 10 year risk is 3.2%. According to the ACR, ACS, and NCCN guidelines, an annual breast MRI exam along with mammogram is recommended if the patient's lifetime risk is 20% or greater. This exam was interpreted at Station ID: [id number]. NOTE: For mammograms, a report in lay terms will be sent to the patient. Approximately 15% of breast malignancies will not be visualized mammographically. In the management of a palpable breast mass, a negative mammogram must not discourage biopsy of a clinically suspicious lesion. Electronically Signed By: Tara Melo M.D., PH.D [email or web address]/[email or web address]:10/08/2023 08:33:07 letter sent: Normal Exam ACR BI-RADS Category 1: Negative [id number]
== END ==
PROVIDERS: PCP Internal Medicine; Referring Provider Internal Medicine; Visit Provider Internal Medicine
DX: Z12.31 Encounter for screening mammogram for malignant neoplasm of breast (principal)
CPT/HCPCS: 77063; 77067

== ENCOUNTER → 2023-10-11 11:24 | Outpatient (CLI) | payer BC, SELFPAY ==
--- NOTE | 2023-10-11 | DI.RAD.S_ITS ---
PROCEDURE: XR RIBS LT MIN 3V W CXR1V INDICATIONS: rib pain on right side, pain with inspiration TECHNIQUE: 2 views of the left ribs were acquired, along with a single view chest. COMPARISON: None. FINDINGS: Surgical changes and devices: None. Bones and chest wall: No fractures or dislocations. No suspicious bony lesions. Overlying soft tissues appear unremarkable. Lungs and pleura: No pleural effusions or pneumothorax. Lungs appear clear. Mediastinum: Mediastinal contours appear normal. Heart size is normal. IMPRESSION: No displaced rib fracture or pneumothorax. Approved by: Hugh Guerrero M.D. on 10/11/2023 at 19:43
== END ==
PROVIDERS: PCP Internal Medicine; Referring Provider Internal Medicine; Visit Provider Internal Medicine
DX: R07.81 Pleurodynia (principal)
CPT/HCPCS: 71101

== ENCOUNTER → 2023-10-13 07:03 | Outpatient (CLI) | payer BC, SELFPAY ==
--- NOTE | 2023-10-13 | DI.US.S_ITS ---
PROCEDURE: US ABDOMEN COMPLETE INDICATIONS: PAIN, BLOATING TECHNIQUE: Real-time scanning was performed of the abdominal and retroperitoneal organs, with image documentation. COMPARISON: None. FINDINGS: Liver: Normal in size. Mildly increased in echogenicity. Gallbladder: Within normal limits. No gallstones or gallbladder wall thickening. Biliary ducts: Intrahepatic bile ducts are non-dilated. Extrahepatic bile duct caliber measures 4.7 mm. Normal is 6-7 mm or less in diameter, or 10 mm or less post-cholecystectomy. Pancreas: Visualized portions of the pancreas are sonographically normal. Spleen: Spleen is normal in size and homogeneous in echotexture. Kidneys: Kidneys are normal in size and echotexture. Right kidney measures 11.2 cm long; left kidney measures 10.3 cm long. No hydronephrosis or nephrolithiasis. No solid masses. Aorta: Visualized aorta is normal in caliber at less than 3 cm. Iliacs: Proximal common iliac arteries are normal in caliber at less than 2.5 cm. IVC: Intrahepatic inferior vena cava is patent. Miscellaneous: No free abdominal fluid. IMPRESSION: 1. Increased hepatic echogenicity noted possibly related to hepatic steatosis but other sources of hepatocellular disease or hepatic cirrhosis cannot be excluded. Recommend clinical correlation. 2. Otherwise, normal abdominal ultrasound. Dictated by: Alex Flores M.D. on 10/13/2023 at 8:54 Approved by: Alex Flores M.D. on 10/13/2023 at 8:56
== END ==
PROVIDERS: PCP Internal Medicine; Referring Provider Internal Medicine; Visit Provider Internal Medicine
DX: R10.11 Right upper quadrant pain (principal)
CPT/HCPCS: 76700

== ENCOUNTER 2023-10-26 11:06 | Emergency (ER) | payer BC, SELFPAY ==
[2023-10-26] VITALS (8 sets, daily range): BP systolic 139–158; BP diastolic 74–82; PULSE 70–86; RESP 18–25; TEMP 36.8; O2SAT 98–100; BMI 26.4
[2023-10-26 12:02] LABS: Add Manual Diff / Slide Review NO; Basophils Absolute Auto 100 /uL (0-100); Basophils Percent Auto 0.9 % (0-2); Eosinophils Absolute Auto 100 /uL (0-450); Eosinophils Percent Auto 2.2 % (2-4); Hematocrit 37.1 % (36-46); Hemoglobin 12.6 g/dL (12.0-16.0); Lymphocytes Absolute Auto 2500 /uL (1100-4500); Lymphocytes Percent Auto 36.1 % (25-40); Mean Corpuscular HGB Conc 34.1 % (30-36); Mean Corpuscular Hemoglobin 31.8 PG (26-34); Mean Corpuscular Volume 93.4 fL (80-100); Monocytes Absolute Auto 600 /uL (0-900); Monocytes Percent Auto 9.3 % (3-14); Neutrophils Absolute Auto 3500 /uL (1500-7000); Neutrophils Percent Auto 51.5 % (50-75); Platelet Count 290 X10^3/uL (150-400); Red Blood Cell Count 3.98 X10^6/uL (4.0-5.2); Red Cell Distribution Width 13.6 % (11.6-14.8); White Blood Cell Count 6.8 X10^3/uL (4.5-11.0)
[2023-10-26 12:12] LABS: Alanine Aminotransferase 42 IU/L (<35); Albumin 4.6 g/dL (3.5-5.0); Albumin Globulin Ratio 1.3 (1.0-2.8); Alkaline Phosphatase 78 U/L (38-126); BUN Creatinine Ratio 33.3 (6-22); Bilirubin Total 0.5 mg/dL (0.2-1.3); Blood Urea Nitrogen 14 mg/dL (7-17); Calcium 10.1 mg/dL (8.4-10.2); Carbon Dioxide 25 mmol/L (22-32); Chloride 104 mmol/L (98-107); Estimated Glomerular Filt Rate > 60 mL/min (>60); Globulin 3.6 g/dL (1.7-4.1); Glucose 99 mg/dL (70-100); HEMOLYSIS < 15 (0-50); Lipase 118 U/L (23-300); Potassium 3.9 mmol/L (3.4-5.1); Sodium 139 mmol/L (137-145); Total Protein 8.2 g/dL (6.3-8.2)
--- NOTE | 2023-10-26 13:07 | ED_ITS ---
HPI - Abdominal Pain General Chief Complaint: Abdominal Pain Stated Complaint: pain in side Time Seen by Provider: 10/26/23 12:45 Source: patient Mode of arrival: Ambulatory History of Present Illness HPI narrative: Patient 53-year-old female who presents today with ongoing left-sided abdominal pain for 3 weeks. It is thoracic region it has been there for couple weeks but progressively getting worse. She reports a 20 lb weight gain over the last 1 year. She feels like her abdomen is distended. No nausea vomiting or fever. She has no changes in bowel habits. She denies any chest pain palpitations shortness of breath or other symptoms. No significant night sweats. According to records she had a CT chest abdomen pelvis done last year which showed some punctate liver lesions I do not see that it has been followed up Related Data Home Medications Medication Instructions Recorded Confirmed [hair/skin/nails] ##0 02/11/17 12/24/18 cholecalciferol (vitamin D3) 50 1 tab PO QDAY ##0 02/11/17 01/10/21 mcg (2,000 unit) tablet (Vitamin D3) glucosamine sulfate 750 mg tablet 750 mg PO DAILY ##0 02/11/17 01/10/21 (Stacey) turmeric root extract 500 mg 1,000 mg PO DAILY 12/24/18 01/10/21 capsule ketoconazole 2 % shampoo See Rx Instructions .Route .COMPLEX 01/08/21 01/10/21 Previous Rx's Medication Instructions Recorded hydrocodone 5 mg-acetaminophen 325 1 tab PO Q6H PRN pain #10 tabs 10/26/23 mg tablet lidocaine 5 % topical patch 1 patch topical DAILY PRN pain 10/26/23 (scale score 1-3) #30 ea Allergies Allergy/AdvReac Type Severity Reaction Status Date / Time No Known Drug Allergies Allergy Verified 01/10/21 12:09 Patient History Medical History Eczema Menopause Osteopenia Surgical History (Updated 02/22/18 @ 06:35 by Conversion Provider) Status post hysterectomy Social History household members: spouse Smoking Status: Former smoker alcohol intake: current Smoking Status: Former smoker alcohol intake frequency: a few times a week Substance Use Type: does not use Exam Initial Vital Signs Initial Vital Signs: Vital Signs Temperature 98.3 F 10/26/23 11:11 Pulse Rate 85 10/26/23 11:11 Respiratory Rate 20 10/26/23 11:11 Blood Pressure 158/78 H 10/26/23 11:11 Pulse Oximetry 99 10/26/23 11:11 Oxygen Delivery Method Room Air 10/26/23 11:11 GENERAL: Alert well-appearing 53-year-old female and in no acute distress. HEENT: Head atraumatic,EOMI, pupils reactive, face symmetric, moist mucous membranes CARDIOVASCULAR: Regular rate and rhythm without murmurs, rubs or gallops. RESPIRATORY: Breath sounds equal bilaterally, no wheezes rales or rhonchi. ABDOMEN: Soft. Mild left upper quadrant pain no guarding no rebound no obvious splenomegaly. Normoactive bowel sounds all 4 quadrants. No guarding or rebound. No fluid wave EXTREMITIES: Normal range of motion, no clubbing or edema. Neurovascularly intact NEUROLOGICAL: Alert and oriented x4.Normal gait and speech. SKIN: Warm, dry, no laceration, no petechiae, no rashes or lesions. Course Orders Ordered: ED Orders 10/26/23 11:18 EKG-12 Lead Stat 10/26/23 11:50 Complete Blood Count AUTO DIFF Stat Comprehensive Metabolic Panel Stat Lipase Stat 10/26/23 13:21 CT chest abd pel w con Stat Discontinued Medications Ondansetron HCl (Ondansetron 4 Mg Odt) 4 mg PO NOW PRN PRN Reason: Nausea And Vomiting Ondansetron HCl (Ondansetron 4 Mg/2 Ml Inj) 4 mg IV NOW PRN PRN Reason: Nausea And Vomiting Vital Signs Vital signs: Vital Signs - 8 hr 10/26/23 11:11 10/26/23 11:45 10/26/23 11:57 Temperature 98.3 F Pulse Rate 85 86 74 Respiratory Rate 20 25 H 20 Blood Pressure 158/78 H Pulse Oximetry 99 99 Oxygen Delivery Method Room Air 10/26/23 11:57 10/26/23 12:00 10/26/23 12:00 Temperature Pulse Rate 71 Respiratory Rate 23 Blood Pressure 139/75 144/80 H Pulse Oximetry 100 Oxygen Delivery Method 10/26/23 12:30 10/26/23 12:30 10/26/23 13:00 Temperature Pulse Rate 75 Respiratory Rate 25 H Blood Pressure 143/76 H 142/74 H Pulse Oximetry 98 Oxygen Delivery Method 10/26/23 13:00 10/26/23 14:59 10/26/23 15:02 Temperature Pulse Rate 70 74 74 Respiratory Rate 18 Blood Pressure 141/82 H Pulse Oximetry 100 100 100 Oxygen Delivery Method Room Air MDM - Abdominal Pain Lab Data 10/26/23 11:50 10/26/23 11:50 Labs: Lab Results 10/26/23 Range/Units 11:50 WBC 6.8 (4.5-11.0) X10^3/uL RBC 3.98 L (4.0-5.2) X10^6/uL Hgb 12.6 (12.0-16.0) g/dL Hct 37.1 (36-46) % MCV 93.4 (80-100) fL MCH 31.8 (26-34) PG MCHC 34.1 (30-36) % RDW 13.6 (11.6-14.8) % Plt Count 290 (150-400) X10^3/uL Neut % (Auto) 51.5 (50-75) % Lymph % (Auto) 36.1 (25-40) % [place] % (Auto) 9.3 (3-14) % Eos % (Auto) 2.2 (2-4) % Baso % (Auto) 0.9 (0-2) % Neut # (Auto) 3500 (2793-2929) /uL Lymph # (Auto) 2500 (8317-8592) /uL [place] # (Auto) 600 (0-900) /uL Eos # (Auto) 100 (0-450) /uL Baso # (Auto) 100 (0-100) /uL Sodium 139 (137-145) mmol/L Potassium 3.9 (3.4-5.1) mmol/L Chloride 104 (98-107) mmol/L Carbon Dioxide 25 (22-32) mmol/L BUN 14 (7-17) mg/dL Creatinine 0.42 L (0.52-1.04) mg/dL Estimated GFR > 60 (>60) mL/min BUN/Creatinine Ratio 33.3 H (6-22) Glucose 99 (70-100) mg/dL Calcium 10.1 (8.4-10.2) mg/dL Total Bilirubin 0.5 (0.2-1.3) mg/dL AST TNP ALT 42 H (<35) IU/L Alkaline Phosphatase 78 (38-126) U/L Total Protein 8.2 (6.3-8.2) g/dL Albumin 4.6 (3.5-5.0) g/dL Globulin 3.6 (1.7-4.1) g/dL Albumin/Globulin Ratio 1.3 (1.0-2.8) Lipase 118 (23-300) U/L Point of care testing: Point of Care Testing Test Results Negative Urine Dip Bedside Urine Glucose Negative Bedside Urine Bilirubin - Negative Bedside Urine Ketone - Negative Urine Specific Avella 1.005 Bedside Urine Occult Blood - Negative Bedside Urine pH 6.5 Bedside Urine Protein - Negative Bedside Urine Urobilinogen - Negative Bedside Urine Nitrite - Negative Bedside Urine Leukocytes - Negative Esterase Imaging Data CT scan - chest: Radiologist's Impression: PROCEDURE: CT CHEST ABD PEL W CON INDICATIONS: left sided chest/ab pain, prior ct punctate liver areas TECHNIQUE: After the administration of intravenous contrast, 5 mm thick sections acquired from the lung apices to the symphysis. 5 mm coronal and sagittal reformats were performed, with additional 7 mm MIP reformats through the lungs. For radiation dose reduction, the following was used: automated exposure control, adjustment of mA and/or kV according to patient size. COMPARISON: [facility], US, US ABDOMEN COMPLETE, 10/13/2023, 7:09. [facility], CT, CT CHEST ABD PEL W CON, 07/23/2022, 12:50. FINDINGS: Image quality: Diagnostic Lungs and pleura: No dense consolidation. Suspected basal atelectasis and scarring. There is a small nodule with surrounding ground-glass opacity at the left lateral base (5/205). No pleural effusions. Mediastinum, heart, and esophagus: Normal heart size. No pathologic lymph nodes by size criteria. Chest wall and thyroid: No actionable thyroid nodule identified. Chest wall is unremarkable. A focal asymmetry in the right upper outer quadrant appears unchanged. 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 These were present previously. Gallbladder and biliary system: Nondilated, unremarkable Pancreas: No ductal dilation Spleen: Nonenlarged Adrenals: No discrete nodule Kidneys: No solid mass or hydronephrosis Vessels and lymph nodes: The main portal vein is patent. No abdominal aortic aneurysm. There is no pathologic adenopathy by size criteria. Bowel and peritoneum: No evidence of small bowel obstruction. No pathologic ascites or drainable abscess. Body wall: Tiny fat containing umbilical hernia. Pelvis: Hysterectomy changes. Pelvic clips again seen. Bladder is unremarkable. Bones: No acute or suspicious osseous finding. There are degenerative changes. A right clavicle deformity is again seen. IMPRESSION: No acute abnormality in the chest, abdomen, or pelvis. A tiny nodule in the left lateral lung base, with surrounding ground-glass opacity () may be infectious/inflammatory. Additional areas of pulmonary atelectasis are seen. No pleural effusions. Other findings as above. Dictated by: Heri Fowler M.D. on 10/26/2023 at 14:13 ECG Data Interpretation: Normal sinus rhythm rate 72 OR interval 166 QRS [address] changes no T- wave inversions MDM Narrative Medical decision making narrative: Patient 53-year-old female presents today with ongoing left-sided pain. It appears ultrasound which did show some hepatic steatosis but no other cause for her left-sided pain. CT has previously been ordered as outpatient but not yet done. Blood work has been reviewed: No leukocytosis or anemia, no CATINA or electrolyte abnormality, normal bili CT does not show any cause left-sided pain Is definitely reproducible maybe musculoskeletal costochondritis like. No evidence of infection or cancer. She is offered pain medication here in the ED but declines. Discharge Plan Departure Patient Disposition: Home Clinical Impression: Abdominal pain Instructions: DI for Abdominal Muscle Strain Activity Restrictions/Additional Instructions: *You have been diagnosed with abdominal pain *What to do: At this time no cause of your abdominal and rib pain. No evidence of infection. CT scan and blood work are overall reassuring. *Continue to take medications as directed--> SAFEWAY Dunlevy 1 tablet every 6 hours if needed for severe pain Lidocaine patch apply to area of pain for 12 hours then remove *Follow up with your primary care provider in 2-3 days or call [phone] *Return to ER if you should have increasing pain shortness of breath [or] any new, worsening or concerning symptoms CONTROLLED SUBSTANCE DISCHARGE (Narcotoic/benzodiazepine/Flexeril/Phenergan) 1. You have been prescribed narcotic medications, it does have acetaminophen/Tylenol/paracetamol in it, DO NOT TAKE MORE THAN 4,00mg in 24 hours of Tylenol. TRAMADOL DOES NOT CONTAIN TYLENOL 2. Please understand that we cannot provide further refills of narcotics, benzodiazepines or controlled substances through the ED and her pain management will need to be through your provider. 3. While on these medications you cannot drive or operate heavy machinery. 4. You cannot sign legal documents or perform any duties such as this. 5. As long as you're taking opiate pain medications he should also be taking a stool softener such as Colace, Dulcolax, MiraLAX or prune juice, to help avoid constipation. Prescriptions: New hydrocodone-acetaminophen 5-325 mg tablet 1 tab PO Q6H PRN (Reason: pain) Qty: 10 0RF lidocaine 5 % adhesive patch,medicated 1 patch topical DAILY PRN (Reason: pain (scale score 1-3)) Qty: 30 0RF Rx Instructions: leave on most painful area for up to 12 hrs No Action turmeric root extract 500 mg capsule 1,000 mg PO DAILY glucosamine sulfate [Stacey] 750 MG tablet 750 mg PO DAILY Qty: 0 cholecalciferol (vitamin D3) [Vitamin D3] 2,000 UNIT tablet 1 tab PO QDAY Qty: 0 [hair/skin/nails] Qty: 0 ketoconazole 2 % shampoo See Rx Instructions .ROUTE .COMPLEX Rx Instructions: Apply to scalp for 1 minute, rinse, and reapply for 3 minutes. Use two to three times weekly. Referrals: Bruna Cantu ARNP [Primary Care Provider] - Stand Alone Forms: Patient Portal/API
--- NOTE | 2023-10-26 13:21 | DI.CT.S_ITS ---
PROCEDURE: CT CHEST ABD PEL W CON INDICATIONS: left sided chest/ab pain, prior ct punctate liver areas TECHNIQUE: After the administration of intravenous contrast, 5 mm thick sections acquired from the lung apices to the symphysis. 5 mm coronal and sagittal reformats were performed, with additional 7 mm MIP reformats through the lungs. For radiation dose reduction, the following was used: automated exposure control, adjustment of mA and/or kV according to patient size. COMPARISON: [facility], US, US ABDOMEN COMPLETE, 10/13/2023, 7:09. [facility], CT, CT CHEST ABD PEL W CON, 07/23/2022, 12:50. FINDINGS: Image quality: Diagnostic Lungs and pleura: No dense consolidation. Suspected basal atelectasis and scarring. There is a small nodule with surrounding ground-glass opacity at the left lateral base (5/205). No pleural effusions. Mediastinum, heart, and esophagus: Normal heart size. No pathologic lymph nodes by size criteria. Chest wall and thyroid: No actionable thyroid nodule identified. Chest wall is unremarkable. A focal asymmetry in the right upper outer quadrant appears unchanged. 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 These were present previously. Gallbladder and biliary system: Nondilated, unremarkable Pancreas: No ductal dilation Spleen: Nonenlarged Adrenals: No discrete nodule Kidneys: No solid mass or hydronephrosis Vessels and lymph nodes: The main portal vein is patent. No abdominal aortic aneurysm. There is no pathologic adenopathy by size criteria. Bowel and peritoneum: No evidence of small bowel obstruction. No pathologic ascites or drainable abscess. Body wall: Tiny fat containing umbilical hernia. Pelvis: Hysterectomy changes. Pelvic clips again seen. Bladder is unremarkable. Bones: No acute or suspicious osseous finding. There are degenerative changes. A right clavicle deformity is again seen. IMPRESSION: No acute abnormality in the chest, abdomen, or pelvis. A tiny nodule in the left lateral lung base, with surrounding ground-glass opacity (5/204) may be infectious/inflammatory. Additional areas of pulmonary atelectasis are seen. No pleural effusions. Other findings as above. Dictated by: Heri Fowler M.D. on 10/26/2023 at 14:13 Approved by: Heri Fowler M.D. on 10/26/2023 at 14:20
[2023-10-29 15:49] LABS: Aspartate Aminotransferase 43 IU/L (14-36)
== END 2023-10-26 15:04 | disposition home or self-care (01) ==
PROVIDERS: Emergency Provider Emergency Medicine; PCP Internal Medicine
DX: R10.9 Unspecified abdominal pain (principal)
CPT/HCPCS: 36415; 71260; 74177; 80053; 81003; 81025; 83690; 85025; 93005; 99283; 99284; Q9967

== ENCOUNTER 2024-03-24 18:39 | Emergency (ER) | payer BC, SELFPAY ==
--- NOTE | 2024-03-24 | DI.RAD.S_ITS ---
PROCEDURE: XR CALCANEOUS RT MIN 2V INDICATIONS: FALL OFF LADDER TECHNIQUE: Two views of the calcaneus were acquired. COMPARISON: , CR, XR TIBIA FIBULA RT 2V, 03/24/2024, 19:22. , CR, XR ANKLE RT MIN 3V, 03/24/2024, 19:22. , CR, XR FOOT RT MIN 3V, 03/24/2024, 19:22. FINDINGS: Bones: There is a comminuted fracture in calcaneus with minimal displacement. No suspicious bony lesions. Soft tissues: No suspicious calcifications. Achilles tendon appears normal. IMPRESSION: Comminuted calcaneal fracture. Dictated by: Gigi Frances M.D. on 03/24/2024 at 20:57 Approved by: Gigi Frances M.D. on 03/24/2024 at 20:58
[2024-03-24 19:01] VITALS: BP 151/80; PULSE 83; RESP 19; TEMP 36.8; O2SAT 100; BMI 25.7
--- NOTE | 2024-03-24 19:07 | DI.RAD.S_ITS ---
PROCEDURE: XR TIBIA FUBULA RT 2V INDICATIONS: fall TECHNIQUE: 2 views of the tibia and fibula were acquired. COMPARISON: [facility], CR, XR ANKLE RT MIN 3V, 03/24/2024, 19:22. FINDINGS: Bones: No fractures or dislocations. No suspicious bony lesions. There is a comminuted calcaneal fracture. Please see separate x-ray for detail. Soft tissues: No suspicious soft tissue calcifications or masses. IMPRESSION: 1. Comminuted calcaneal fracture. 2. No acute bony abnormality in tibia or fibula. Dictated by: Gigi Frances M.D. on 03/24/2024 at 21:01 Approved by: Gigi Frances M.D. on 03/24/2024 at 21:02
--- NOTE | 2024-03-24 19:07 | DI.RAD.S_ITS ---
PROCEDURE: XR ANKLE RT MIN 3V INDICATIONS: fall TECHNIQUE: 3 views of the ankle were acquired. COMPARISON: [facility], , XR FOOT RT MIN 3V, 03/24/2024, 19:22. FINDINGS: Bones: There is a comminuted calcaneal fracture with mild displacement. Ankle mortise is normally aligned. No suspicious bony lesions. Soft tissues: Achilles tendon appears normal. Soft tissue swelling. There is a small tibiotalar joint effusion. IMPRESSION: No acute bony abnormality or significant effusion. Dictated by: Gigi Frances M.D. on 03/24/2024 at 20:59 Approved by: Gigi Frances M.D. on 03/24/2024 at 21:01
--- NOTE | 2024-03-24 19:07 | DI.RAD.S_ITS ---
PROCEDURE: XR FOOT RT MIN 3V INDICATIONS: fall TECHNIQUE: 3 views of the foot were acquired. COMPARISON: [facility], CR, XR ANKLE RT MIN 3V, 03/24/2024, 19:22. [facility], CR, XR CALCANEOUS RT MIN 2V, 03/24/2024, 19:35. [facility], CR, XR FOOT RT MIN 3V, 05/15/2019, 15:05. FINDINGS: Bones: There is a comminuted calcaneal fracture with mild displacement. No suspicious bony lesions. Soft tissues: No tibiotalar joint effusion. Achilles tendon appears normal. IMPRESSION: Comminuted calcaneal fracture. Dictated by: Gigi Frances M.D. on 03/24/2024 at 20:59 Approved by: Gigi Frances M.D. on 03/24/2024 at 20:59
--- NOTE | 2024-03-24 20:41 | ED_ITS ---
HPI - Extremity Injury (Lower) General Chief Complaint: Extremity Injury, Lower Stated Complaint: rt ankle inj Time Seen by Provider: 03/24/24 20:37 History of Present Illness HPI Narrative: 53-year-old female presents with right foot injury. She was stepping down a ladder when she lost her balance and fell, catching her foot against the ladder. She denies other accident or injury. Has significant right foot pain and swelling. Unable to bear any weight on it whatsoever. denies use of blood thinners Related Data Home Medications Medication Instructions Recorded Confirmed [hair/skin/nails] ##0 02/11/17 12/24/18 cholecalciferol (vitamin D3) 50 1 tab PO QDAY ##0 02/11/17 01/10/21 mcg (2,000 unit) tablet (Vitamin D3) glucosamine sulfate 750 mg tablet 750 mg PO DAILY ##0 02/11/17 01/10/21 (Stacey) turmeric root extract 500 mg 1,000 mg PO DAILY 12/24/18 01/10/21 capsule ketoconazole 2 % shampoo See Rx Instructions .Route .COMPLEX 01/08/21 01/10/21 Previous Rx's Medication Instructions Recorded hydrocodone 5 mg-acetaminophen 325 1 tab PO Q6H PRN pain #10 tabs 10/26/23 mg tablet lidocaine 5 % topical patch 1 patch topical DAILY PRN pain 10/26/23 (scale score 1-3) #30 ea oxycodone-acetaminophen 5 mg-325 1 tab PO Q8H PRN pain #14 tabs 03/24/24 mg tablet Allergies Allergy/AdvReac Type Severity Reaction Status Date / Time No Known Drug Allergies Allergy Verified 03/24/24 19:06 Review of Systems Review of Systems Narrative: See HPI Patient History Medical History Menopause Osteopenia Eczema Surgical History Status post hysterectomy Social History household members: spouse Smoking Status: Former smoker alcohol intake: current Smoking Status: Former smoker alcohol intake frequency: a few times a week Substance Use Type: does not use Exam Initial Vital Signs Initial Vital Signs: Vital Signs Temperature 98.3 F 03/24/24 19:01 Pulse Rate 83 03/24/24 19:01 Respiratory Rate 19 03/24/24 19:01 Blood Pressure 151/80 H 03/24/24 19:01 Pulse Oximetry 100 03/24/24 19:01 Oxygen Delivery Method Room Air 03/24/24 19:01 Const: Awake, alert, no acute distress, nontoxic appearing MSK: Marked swelling right heel, palpable pulses Skin: Warm, Dry, intact, no rashes Neuro: AO x3, CN II-XII grossly intact, moves all extremities Course Orders Ordered: Discontinued Medications Oxycodone HCl (Oxycodone Ir 5 Mg Tablet) 5 mg PO NOW ONE Stop: 03/24/24 20:55 Last Admin: 03/24/24 21:23 Dose: 5 mg Documented By: JOE Oxycodone/Acetaminophen (Oxycodone/Apap 5/325 Prepack) 1 bottle MISC DIRECTED ONE Stop: 03/24/24 21:21 Last Admin: 03/24/24 21:30 Dose: 1 bottle Documented By: JOE Vital Signs Vital signs: Vital Signs - 8 hr 03/24/24 22:51 Pulse Rate 79 Respiratory Rate 18 Blood Pressure 145/80 H Pulse Oximetry 100 Oxygen Delivery Method Room Air MDM - Extremity Injury (Lower) Differential Diagnosis Differential diagnosis: Likely ankle sprain and strain, acute internal derangement of knee and fracture of toe Imaging Data Extremity x-ray #1: Radiologist's Impression: PROCEDURE: XR CALCANEOUS RT MIN 2V INDICATIONS: FALL OFF LADDER TECHNIQUE: Two views of the calcaneus were acquired. COMPARISON: [facility], CR, XR TIBIA FIBULA RT 2V, 03/24/2024, 19:22. [facility], CR, XR ANKLE RT MIN 3V, 03/24/2024, 19:22. [facility], CR, XR FOOT RT MIN 3V, 03/24/2024, 19:22. FINDINGS: Bones: There is a comminuted fracture in calcaneus with minimal displacement. No suspicious bony lesions. Soft tissues: No suspicious calcifications. Achilles tendon appears normal. IMPRESSION: Comminuted calcaneal fracture. Dictated by: Gigi Frances M.D. on 03/24/2024 at 20:57 Approved by: Gigi Frances M.D. on 03/24/2024 at 20:58 MDM Narrative Medical decision making narrative: Accidental lower extremity injury after losing balance on ladder. Denies head injury or use of blood thinners. Injury and pain is distal to the tib-fib marizol on, she has no tenderness over her knee, femur, hips, any other location on her body. Tenderness is focused on the heel of her right foot. Palpable distal pulses. X-ray imaging is significant for calcaneal fracture. Patient was given pain medications, placed in posterior splint and given crutches. Patient was counseled on strict nonweightbearing status and orthopedic referral is provided. Pain medication sent to pharmacy of choice. Patient requested a note for work since she does work at [employer] in an active position. Discharge Plan Departure Patient Disposition: Home Clinical Impression: Calcaneal fracture Qualifiers: Encounter type: initial encounter Calcaneus location: body Fracture type: closed Fracture alignment: displaced Laterality: right Qualified Code(s): S92.011A - Displaced fracture of body of right calcaneus, initial encounter for closed fracture Accidental fall from ladder Qualifiers: Encounter type: initial encounter Qualified Code(s): W11.XXXA - Fall on and from ladder, initial encounter Instructions: DI for Calcaneus Fracture Activity Restrictions/Additional Instructions: Your x-rays today showed that you have a calcaneus, or heel fracture. You have been placed in his splint and given crutches. It was extremely important that you absolutely bear no weight whatsoever on this foot until otherwise seen and cleared by Orthopedic surgery. You may need surgery on this bone, however Orthopedics we will decide what further management is needed. You may take up to 400 mg of ibuprofen and 1000 mg of Tylenol every 6 hours for pain. Please make sure you take no more than 4000 mg of Tylenol daily. A short course of pain medication has been sent to your pharmacy. Do not take this medication with alcohol or before operating heavy machinery as it may cause dizziness and drowsiness. This may also cause constipation, you should take this medication with a daily stool softener. Prescriptions: New oxycodone-acetaminophen 5-325 mg tablet 1 tab PO Q8H PRN (Reason: pain) Qty: 14 0RF No Action turmeric root extract 500 mg capsule 1,000 mg PO DAILY glucosamine sulfate [Stacey] 750 MG tablet 750 mg PO DAILY Qty: 0 cholecalciferol (vitamin D3) [Vitamin D3] 2,000 UNIT tablet 1 tab PO QDAY Qty: 0 [hair/skin/nails] Qty: 0 ketoconazole 2 % shampoo See Rx Instructions .ROUTE .COMPLEX Rx Instructions: Apply to scalp for 1 minute, rinse, and reapply for 3 minutes. Use two to three times weekly. hydrocodone-acetaminophen 5-325 mg tablet 1 tab PO Q6H PRN (Reason: pain) Qty: 10 0RF lidocaine 5 % adhesive patch,medicated 1 patch topical DAILY PRN (Reason: pain (scale score 1-3)) Qty: 30 0RF Rx Instructions: leave on most painful area for up to 12 hrs Referrals: Kyra Cook MD [Physician] - Bruna Cantu ARNP [Primary Care Provider] - Stand Alone Forms: Patient Portal/API, Work Release Note
[2024-03-24] MEDS: OXYCODONE IR 5 MG TABLET PO (21:23)
[2024-03-24] MEDS: OXYCODONE/APAP 5/325 PREPACK 1 BOTTLE MISC (21:30)
[2024-03-24 22:51] VITALS: BP 145/80; PULSE 79; RESP 18; O2SAT 100
== END 2024-03-24 22:53 | disposition home or self-care (01) ==
PROVIDERS: Emergency Provider Emergency Medicine; PCP Internal Medicine
DX: S92.011A Displaced fracture of body of right calcaneus, initial encounter for closed fracture (principal); W11.XXXA Fall on and from ladder, initial encounter
CPT/HCPCS: 29515; 73590; 73610; 73630; 73650; 99283; 99284

== ENCOUNTER → 2024-04-03 11:49 | Outpatient (CLI) | payer BC, SELFPAY ==
--- NOTE | 2024-04-03 | DI.CT.S_ITS ---
PROCEDURE: CT LE RT WO CON INDICATIONS: RIGHT CALCANEUS FRACTURE TECHNIQUE: Noncontrast 1-1.5 mm axial sections acquired from above the tibiotalar joint to the bottom of the calcaneus, with coronal and sagittal reformats. COMPARISON: [facility], CR, XR FOOT RT MIN 3V, 03/24/2024, 19:22. [facility], CR, XR ANKLE RT MIN 3V, 03/24/2024, 19:22. [facility], CR, XR CALCANEOUS RT MIN 2V, 03/24/2024, 19:35. FINDINGS: Image quality: Excellent. Bones: As seen on previous right foot radiograph, there is a severely comminuted fracture throughout calcaneus with fracture lines extending to superior and inferior cortices of calcaneus as well as calcaneocuboid joint space. There are superior, medial and laterally displaced fractured calcaneal fragments. No other fracture or dislocation is seen. No suspicious intraosseous lesion. No metatarsal stress fractures. Osteoarthritic changes throughout right foot are seen. Well-defined plantar calcaneal enthesophyte is noted. Soft tissues: Marked soft tissue swelling and edema surrounding calcaneal fracture site is seen. Extensive soft tissue swelling is also seen along dorsal aspect of right foot. No discrete drainable fluid collection. No abnormal soft tissue calcifications. No gross full-thickness ankle tendon rupture. IMPRESSION: 1. Severely comminuted and displaced fracture throughout calcaneus as described above. No other fracture or dislocation. No suspicious bony lesions. 2. Soft tissue swelling and edema surrounding calcaneal fracture site. No abnormal soft tissue calcifications. No gross full-thickness tendon rupture. 3. Right foot osteoarthritis. Well-defined plantar calcaneal enthesophytes. Dictated by: Kirby Santana M.D. on 04/03/2024 at 14:37 Approved by: Kirby Santana M.D. on 04/03/2024 at 16:29
== END ==
LOC: CT 11:50
PROVIDERS: PCP Internal Medicine; Referring Provider Orthopaedic Surgery Foot and Ankle Surgery; Visit Provider Orthopaedic Surgery Foot and Ankle Surgery
DX: S92.011A Displaced fracture of body of right calcaneus, initial encounter for closed fracture (principal); M79.89 Other specified soft tissue disorders; M77.31 Calcaneal spur, right foot; M19.071 Primary osteoarthritis, right ankle and foot; X58.XXXA Exposure to other specified factors, initial encounter
CPT/HCPCS: 73700

== ENCOUNTER 2024-04-05 09:18 | Day surgery (SDC) | payer BC, SELFPAY ==
[2024-04-04 12:25] VITALS: BMI 26.5
[2024-04-05] VITALS (7 sets, daily range): BP systolic 132–153; BP diastolic 69–92; PULSE 72–83; RESP 13–21; TEMP 36.4–37.3; O2SAT 95–100; BMI 26.5
--- NOTE | 2024-04-05 | DI.RAD.S_ITS ---
PROCEDURE: XR CALCANEOUS RT MIN 2V INDICATIONS: ORIF CALCANEAL FRACTURE TECHNIQUE: 9 intraoperative fluoroscopic views of the calcaneus were acquired. COMPARISON: [facility], [place], XR CALCANEOUS RT MIN 2V, 03/24/2024, 19:35. FINDINGS: Intraoperative fluoroscopic images shows internal fixation of calcaneus with surgical hardware in place. Alignment of right heel is anatomic. IMPRESSION: Fluoro guidance was provided intraoperatively for ORIF of right calcaneus. Dictated by: Kirby Santana M.D. on 04/05/2024 at 17:22 Approved by: Kirby Santana M.D. on 04/05/2024 at 17:22
[2024-04-05] MEDS: ACETAMINOPHEN 325 MG TABLET 975 MG PO (09:51)
[2024-04-05] MEDS: SCOPOLAMINE 1 PATCH TOP (09:53)
[2024-04-05] MEDS: LACTATED RINGERS 1,000 ML 42 ML IV ×2 (09:54→13:15)
--- NOTE | 2024-04-05 10:52 | PM.PREOP ---
Pre-operative Note Interval Note History & Physical reviewed/Exam performed by Physician: Yes Changes to H&P: No
--- NOTE | 2024-04-05 10:54 | SUR.OPER ---
Lateral on a loera bag, head on pillow, gel axillary roll in place, bottom leg bent with gel pad under knee to foot, operative leg resting on pillow and stack of blankets and draped free. Upper arm supported by pillows and secured over bottom arm to padded arm board. Safety belt at hip, tape over blanket on non op leg.
[2024-04-05] MEDS: CEFAZOLIN 2 GM/100 ML PREMIX 100 ML IV (11:25)
--- NOTE | 2024-04-05 11:35 | SUR.PREOP ---
1105 - Block start time. Monitoring initiated and maintained throughout procedure. Oxygen applied. 1106 - Time out completed. 1111 - Adductor canal injection. 1118 - Popliteal injection. 1119 - Block complete. Pt remained stable throughout procedure. No adverse reactions noted. Medications given per anesthesia.
[2024-04-05] MEDS: BUPIVACAINE 0.25% W/ EPI 30 ML VIAL 60 ML INJ (11:51)
--- NOTE | 2024-04-05 14:52 | PM.OP.1 ---
Operative Date/Time/Diagnoses Date of procedure: 04/05/24 Time of procedure: 11:45 Pre-op diagnosis: Displaced calcaneus fracture, right s92.011 Post-op diagnosis: same Procedure & Clinicians Procedure: ORIF R calcaneus fracture cpt 06646 Same procedure as scheduled: Yes Indications: The patient has a displaced right calcaneus fracture with intra-articular involvement and depression of the posterior facet. This occurred after a fall off a ladder. She has been indicated for open reduction internal fixation to help reduce the risk of posttraumatic arthritis and prolonged dysfunction help restore alignment. The risks and benefits of the procedure have been discussed with the patient and given the opportunity to ask questions. The risks of surgery include but are not limited to infection, malunion, nonunion, persistence of pain, damage to nerves and blood vessels, posttraumatic arthritis, DVT, PE, cardiopulmonary complications and . The patient expressed a thorough understanding of the risks and benefits of surgery and has elected to proceed. Consent was signed . Surgeon: Kyra Cook Click Yes if Unassisted: Yes Anesthesia Type: General, Peripheral nerve block and Local Operative Notes Findings: Displaced intra-articular fragment multi fragmentary comminuted with depression lateral half of posterior facet of the calcaneus. Split through anterior process and comminution of the calcaneal body. Closure Type: primary Specimen(s): none sent Prosthetic devices, grafts, tissues, transplants, or devices: Arthrex small anterior process plate from the Arthrex calcaneus fracture plate set applied through sinus tarsi approach with 3.5 locking screws. Separate 5.0 x 60 mm cannulated screw Arthrex. And a cut retained K-wire for posterior facet reduction. Estimated Blood Loss (mL): 30 Blood products transfused: none Tourniquet time (min): 130 Procedure in detail: Patient was seen in the preoperative area the site of surgery was marked informed consent confirmed this was the right heel. Patient was brought to the block room by the anesthesia team regional block was placed for postoperative pain control. The patient was then brought to the anesthesia by the anesthesia team to the surgical suite. General anesthetic was administered. Patient was then positioned to the lateral decubitus position with the right side up. Bony prominences well padded. A well-padded axillary roll was applied. In the down extremity was padded. An SCD was placed on the contralateral lower extremity. The right lower extremity was prepped and draped in the standard sterile fashion a formal time-out procedure was performed confirming the patient's side and site of surgery administration of appropriate preoperative antibiotic. All were in agreement. Attention turned to the right heel the C-arm was brought out and bony landmarks were marked on the skin. Next Esmarch was used for exsanguination the tourniquet raised on the thigh to 275 mmHg. Attention was turned to the right foot. A sinus tarsi incision from the tip of the fibula in line with the 4th metatarsal was made down through the skin subcutaneous tissue. The extensor digitorum brevis was elevated to expose the sinus tarsi. Peroneal tendons were exposed and retracted posteriorly. There was a comminuted fracture involving blood of the lateral wall. Once the joint was entered the depressed lateral half of the posterior facet was demonstrated and disimpacted. As well as the anterior process fracture fragment. A Slayden elevator was placed in through the major fragment from lateral to medial to help with disimpaction. Next a small incision was made over the calcaneus tuberosity laterally. Blunt dissection was taken to bone and a 5.0 Schanz pin was then placed into the tuberosity. This was used to help lever the tuberosity out of varus in addition to the Slayden inserted through the fracture from lateral to medial. Once alignment was appropriate on hindfoot alignment restoring physiologic valgus a K-wire for a 5.0 screw was entered percutaneously through the heel to hold alignment. This was checked on lateral and axial imaging. Next attention was turned back to the incision the posterior facet fragment was elevated and pinned with an additional K-wire. Next incision was made over the wire posteriorly and blunt dissection down to the heel. The K-wire for the 4.0 cannulated screw was measured and then overdrilled and a 5.0 x 60 mm screw was placed from the Arthrex set. Then attention was returned back to the joint. Sinus tarsi plates were positioned along the calcaneus the standard sinus tarsi plates were little too big for this patient's anatomy so the anterior process plate was used with care to make sure that we were clear of the calcaneocuboid joint. Plate was then positioned and provisionally placed down to bone with nonlocking screws and K-wires. Nonlocking screw was placed across the posterior facet. This was noted to slightly displaced the fracture after the posterior facet K-wire was removed therefore the screw was removed and the posterior facet K-wire was replaced with anatomic visualization reduction of the posterior facet matching the inferior talus articular surfaces. Decision was made to retain the K-wire and this was cut at the end of the case and retained. After the plate was positioned down to the bone provisionally with nonlocking screws locking screws were placed with locking 3 5 screws and the nonlocking screws were removed due to the poor bone quality and exchanged for locking screws. Ankle was taken through range of motion there were no bony blocks to inversion and eversion. The intraoperative fluoroscopy was taken in AP, Broden ins and lateral and axial views demonstrating appropriate length and alignment of the plate and screws. Once this was completed the tourniquet was released and hemostasis was achieved. Wound was closed in a layered fashion with 2-0 PDS, 4-0 Monocryl and 3-0 nylon suture. 20 cc of 0.25% Marcaine with epinephrine were injected for local anesthesia. The foot was noted to pink up well. A sterile dressing was placed with Xeroform gauze and Webril. A U splint with bulky Vila cotton was applied. The patient was woken and taken to the recovery unit in good condition there no immediate complications for this procedure all counts were correct. Complications: none Post-operative Condition: stable Disposition: PACU Plan for aftercare: Nonweightbearing x8 weeks. We will return to clinic in 2-3 weeks for inspection of the sutures and early initiation of range of motion but nonweightbearing will continue through 8 weeks. Aspirin for DVT prophylaxis.
== END 2024-04-05 15:50 | disposition home or self-care (01) ==
PROVIDERS: PCP Internal Medicine; Referring Provider Preventive Medicine Public Health & General Preventive Medicine; Visit Provider Orthopaedic Surgery Foot and Ankle Surgery
PROC: (CPT 28415; principal; 2024-04-05 11:00)
DX: S92.011A Displaced fracture of body of right calcaneus, initial encounter for closed fracture (principal); W11.XXXA Fall on and from ladder, initial encounter; Y92.9 Unspecified place or not applicable; G89.18 Other acute postprocedural pain
CPT/HCPCS: 28415; 64450; 73650; 76000; C1713; J0690; J1100; J1885; J2250; J2405; J2704; J3010

== ENCOUNTER → 2024-11-03 16:51 | Outpatient (CLI) | payer BC, SELFPAY ==
--- NOTE | 2024-11-03 16:52 | DI.MG.S_ITS ---
BILATERAL DIGITAL SCREENING MAMMOGRAM 3D/2D WITH CAD: 11/03/2024 CLINICAL: Routine screening. Comparison is made to exams dated: 10/07/2023 mammogram, 12/01/2021 mammogram, and 12/05/2020 mammogram - [facility]. The breasts are heterogeneously dense, which may obscure small masses (category c / 51-75% glandular tissue). Current study was also evaluated with a Computer Aided Detection (CAD) system. No significant masses, calcifications, or other findings are seen in either breast. There has been no significant interval change. IMPRESSION: NEGATIVE There is no mammographic evidence of malignancy. A 1 year screening mammogram is recommended. Based on the Tyrer Cuzick model (a risk assessment model) the patient's lifetime risk is 11.1% and her 10 year risk is 3.4%. According to the ACR, ACS, and NCCN guidelines, an annual breast MRI exam along with mammogram is recommended if the patient's lifetime risk is 20% or greater. This exam was interpreted at Station ID: [id number]. NOTE: For mammograms, a report in lay terms will be sent to the patient. Approximately 15% of breast malignancies will not be visualized mammographically. In the management of a palpable breast mass, a negative mammogram must not discourage biopsy of a clinically suspicious lesion. Electronically Signed By: Cole tong/cesilia:11/06/2024 10:59:37 letter sent: Normal Exam ACR BI-RADS Category 1: Negative
== END ==
PROVIDERS: PCP Internal Medicine; Referring Provider Internal Medicine; Visit Provider Internal Medicine
DX: Z12.31 Encounter for screening mammogram for malignant neoplasm of breast (principal); R92.333 Mammographic heterogeneous density, bilateral breasts
CPT/HCPCS: 77063; 77067

== ENCOUNTER → 2024-11-23 12:54 | Outpatient (CLI) | payer BC, SELFPAY ==
--- NOTE | 2024-11-23 12:57 | DI.RAD.S_ITS ---
PROCEDURE: XR SHOULDER RT MIN 2V INDICATIONS: SHOULDER TECHNIQUE: Three views of the right shoulder were acquired. COMPARISON: None. FINDINGS: Bones: Malunified old fracture of the midclavicle is resulted in bayonet deformity Acromioclavicular and glenohumeral joints: Normal in width and alignment without arthritic change Soft tissues: No soft tissue swelling, calcification or mass. 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 on 11/24/2024 at 12:10 Approved by: Gio Lowe M.D. on 11/24/2024 at 12:12
== END ==
PROVIDERS: PCP Family Medicine; Referring Provider Family Medicine; Visit Provider Family Medicine
DX: M25.511 Pain in right shoulder (principal); G89.29 Other chronic pain; S42.011 Anterior displaced fracture of sternal end of right clavicle; M95.8 Other specified acquired deformities of musculoskeletal system
CPT/HCPCS: 73030

== ENCOUNTER → 2024-12-31 10:38 | Outpatient (CLI) | payer BC, SELFPAY ==
--- NOTE | 2024-12-31 | DI.MRI.S_ITS ---
PROCEDURE: MR SHOULDER RT WO CON INDICATIONS: r/o rotator cuff tear TECHNIQUE: Noncontrast oblique coronal T2 fast spin echo with fat saturation, oblique sagittal T1 spin echo and T2 fast spin echo with fat saturation, axial T1 spin echo and T2 fast spin echo with fat saturation through the shoulder. COMPARISON: [facility], CR, XR SHOULDER RT MIN 2V, 11/23/2024, 12:56. FINDINGS: Image quality: Excellent. Rotator cuff: Moderate grade partial intrasubstance and likely bursal sided tearing at the posterior supraspinatus tendon insertion measuring 5 mm in anterior-posterior dimension superimposed on [id number] tendinosis. Mild infraspinatus tendinosis. Teres minor and subscapularis tendons are intact. Rotator cuff musculature is normal in signal intensity and bulk. Bones and bursae: Moderate osseous edema at the distal clavicle adjacent to the acromioclavicular joint. Chronic fracture deformity is partially included the mid clavicle shaft. The fracture may be at least partially ununited and formation of a pseudoarthrosis is not excluded. Mild osseous edema adjacent to the clavicle fracture site. No focal glenohumeral cartilage defect. Mild to moderate acromioclavicular osteoarthrosis. Trace subacromial/subdeltoid bursal fluid. No significant glenohumeral effusion. Capsule and soft tissues: Mild labral degeneration. Chronic nondisplaced tearing at the superior labrum. Proximal biceps long head tendon demonstrates moderate tendinosis and suspected partial intrasubstance tearing. There is effacement of the fat signal in the rotator interval. The anterior band of the inferior glenohumeral ligament appears thickened. IMPRESSION: 1. Osseous edema at the distal clavicle adjacent to the acromioclavicular joint may be secondary to an osseous contusion, adjacent [id number] osteoarthrosis, or chronic repetitive microtrauma. 2. Chronic fracture deformity at the mid clavicular shaft is partially included with mild surrounding osseous edema. The fracture appears at least partially ununited and pseudoarthrosis is not excluded. 3. Focal moderate grade partial intrasubstance and possibly bursal sided tearing of the supraspinatus tendon at the posterior insertion measuring approximately 5 mm in anterior-posterior dimension. [id number] supraspinatus tendinosis and mild infraspinatus tendinosis. 4. Moderate proximal biceps long head tendinosis and suspected low-grade partial intrasubstance tearing. 5. Diffuse labral degeneration and nondisplaced degenerative tearing of the superior labrum. 6. Partial effacement of the rotator interval fat and mild thickening of the inferior glenohumeral ligament are nonspecific, but can be seen in the setting of the clinical syndrome of adhesive capsulitis. Approved by: Shadi Urbina M.D. on 01/01/2025 at 9:02
== END ==
PROVIDERS: PCP Family Medicine; Referring Provider Orthopaedic Surgery; Visit Provider Orthopaedic Surgery
DX: S46.811A Strain of other muscles, fascia and tendons at shoulder and upper arm level, right arm, initial encounter (principal); S42.021S Displaced fracture of shaft of right clavicle, sequela; X58.XXXA Exposure to other specified factors, initial encounter
CPT/HCPCS: 73221